=== PATIENT | female | born 1995 | race Asian ===

== ENCOUNTER 2018-07-19 05:16 | Emergency (ER) | payer SELFPAY ==
[2018-07-19] MEDS ORDERED: ZOFRAN IV ONE (05:20)
[2018-07-19] MEDS ORDERED: SUBLIMAZE IV ONE ×3 (05:20→10:00)
[2018-07-19] MEDS ORDERED: NACL 0.9% 1000 ML 1,000 ML IV ONE ×2 (05:20→06:24)
[2018-07-19] MEDS ORDERED: ATIVAN IV ONE (05:20)
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
[2018-07-19 05:51] LABS: Hematocrit 40.9 % (30.3-42.9); Hemoglobin 13.5 gm/dl (10.1-14.3); Mean Corpuscular HGB Conc 33 % (30-34); Mean Corpuscular Hemoglobin 28 pg (28-32); Mean Corpuscular Volume 86 fl (79-97); Platelet Count 327 K/mm3 (140-440); Red Blood Count 4.75 M/mm3 (3.65-5.03); Red Cell Distribution Width 13.2 % (13.2-15.2)
[2018-07-19 06:07] LABS: INR 1.04 (0.87-1.13); Partial Thromboplastin Time 23.7 Sec. (24.2-36.6)
[2018-07-19 06:13] LABS: Alanine Aminotransferase 34 units/L (7-56); Albumin 4.4 g/dL (3.9-5); BUN/Creatinine Ratio 9; Blood Urea Nitrogen 6 mg/dL (7-17); Calcium 9.1 mg/dL (8.4-10.2); Hemolysis Index 82
--- NOTE | 2018-07-19 06:22 | Cat Scan Report ---
FINAL REPORT EXAM: CT FACIAL BONES WO CON HISTORY: Trauma TECHNIQUE: Routine axial imaging was obtained of the facial bones without IV contrast with sagittal coronal reconstructions. FINDINGS: The orbital rims and floors appear intact. The nasal bones and zygomatic arches appear intact. The mandible does not show any acute changes. The visualized sinuses are clear. The surrounding soft tissues do not show any acute changes. IMPRESSION: No evidence of acute facial bone fracture or soft tissue injury.
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
--- NOTE | 2018-07-19 06:25 | Cat Scan Report ---
FINAL REPORT EXAM: CT CERVICAL SPINE WO CON HISTORY: Trauma TECHNIQUE: CT imaging is acquired through the cervical spine without contrast. Transaxial, coronal and sagittal reformations are provided. PRIORS: None. FINDINGS: The cervical spine is intact. Vertebral body heights are preserved. No acute fracture or listhesis. Atlanto-dens interval and odontoid process are intact. Intervertebral disc spaces are preserved. No perivertebral soft tissue swelling or hematoma identified. Limited soft tissue exam of the visualized neck is unremarkable. IMPRESSION: No acute cervical spine fracture identified. Correlate with physical exam and follow up as warranted.
[2018-07-19 06:42] LABS: Basophils % (Manual) 0 % (0.0-1.8); Total Cells Counted 100
[2018-07-19 06:43] LABS: Platelet Estimate Consistent w Auto; RBC Morphology Normal
--- NOTE | 2018-07-19 07:06 | Cat Scan Report ---
FINAL REPORT EXAM: CT CHEST W CON HISTORY: Trauma, chest pain TECHNIQUE: Routine axial imaging was obtained of the thorax following the intravenous injection of 100 cc of Omnipaque 350. Sagittal and coronal reconstructions were reviewed. FINDINGS: The lungs are clear. There is no evidence of pneumothorax or contusion. Pleural fluid is not seen. The heart size is normal. Pericardial fluid is not seen. There is no evidence of adenopathy. The thoracic aorta is normal in configuration. The ribs and thoracic spine are unremarkable. On the parasagittal reconstructions there is motion artifacts versus fractures involving the manubrium and body of the of the sternum. Correlation clinical exam needed. At the thoracic inlet the thyroid gland appears normal. In the upper abdomen the adrenal glands are not enlarged IMPRESSION: Motion artifacts versus fractures involving the manubrium and body of the sternum. Correlation with clinical exam needed. No evidence of pulmonary contusion, pneumothorax or pleural effusion. No acute process in the chest otherwise.
--- NOTE | 2018-07-19 07:18 | Cat Scan Report ---
FINAL REPORT EXAM: CT ABDOMEN PELVIS W CON HISTORY: Trauma, abdominal pain TECHNIQUE: Routine axial imaging was obtained of the abdomen and pelvis following the intravenous injection of 100 cc of Omnipaque 350. Sagittal and coronal reconstructions were reviewed. FINDINGS: The lung bases are clear. Pleural fluid is not seen. The liver, spleen, gallbladder, pancreas and adrenal glands appear normal. The kidneys enhance normally. The abdominal aorta is normal in caliber. The bowel loops are normal in caliber and course. Free fluid is not seen. The appendix appears normal. In the pelvis the uterus and bladder appear normal. There is a complete posterior fracture dislocation of the right hip joint. There are fracture fragments within the acetabular fossa. There are fractures of the posterior lip of the tibia as well as the posterior column. No definite fracture of the femoral head and neck is identified. The left hip joint appears normal. The lumbar spine is unremarkable. IMPRESSION: Complete comminuted posterior fracture dislocation of the right hip joint as described. No evidence of intra-abdominal or pelvic visceral injury.
[2018-07-19] MEDS ORDERED: ZOFRAN ODT ONE (07:49)
[2018-07-19 08:11] LABS: Bacteria,Urine 1+ /HPF (Negative); Bilirubin,Urine NEG (Negative); Blood,Urine MOD (Negative); Color,Urine Straw (Yellow); HCG Qualitative,Urine Negative (Negative); Protein,Urine <15 mg/dL mg/dL (Negative); Urobilinogen,Urine < 2.0 mg/dL (<2.0)
[2018-07-19 08:17] LABS: Amphetamine Screen,Urine PRESUMPTIVE NEGATIVE; Benzodiazepines Screen,Urine PRESUMPTIVE NEGATIVE; Cannabinoid Screen,Urine PRESUMPTIVE NEGATIVE; Cocaine Screen,Urine PRESUMPTIVE NEGATIVE; Methadone Screen,Urine PRESUMPTIVE NEGATIVE; Opiate Screen,Urine PRESUMPTIVE NEGATIVE
[2018-07-19 11:30] VITALS: BP 118/82
== END 2018-07-19 11:25 | disposition short-term general hospital (02) ==
LOC: ED 05:16
DX: S32.414A Nondisplaced fracture of anterior wall of right acetabulum, initial encounter for closed fracture (principal); S00.91XA Abrasion of unspecified part of head, initial encounter; S73.004A Unspecified dislocation of right hip, initial encounter; J45.909 Unspecified asthma, uncomplicated; V49.49XA Driver injured in collision with other motor vehicles in traffic accident, initial encounter; Y93.89 Activity, other specified; Y99.8 Other external cause status; Y92.481 Parking lot as the place of occurrence of the external cause
CPT/HCPCS: 36415; 70450; 70486; 71045; 71260; 72125; 72170; 74177; 80053; 80307; 81001; 81025; 82550; 84484; 85007; 85025; 85610; 85730; 86850; 86900; 86901; 93005; 93010; 96374; 96375; 96376; 99291; G0480; J2060; J2405; J3010; J7030; Q9967; 80320; Q0162

== ENCOUNTER 2021-08-31 23:45 | Emergency (ER) | payer SELFPAY ==
[2021-08-31 23:56] VITALS: BP 173/84
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
== END 2021-09-01 02:30 | disposition home or self-care (01) ==
LOC: ED 23:45
DX: R09.89 Other specified symptoms and signs involving the circulatory and respiratory systems (principal); J45.909 Unspecified asthma, uncomplicated; Z79.899 Other long term (current) drug therapy
CPT/HCPCS: 99281